=== PATIENT | female | born 1975 | race Two or more races ===

== ENCOUNTER 2021-06-17 02:18 | Emergency (ER) | payer OTHER ==
[~2021-06-17] VITALS: Ht 149.9 cm; Wt 74.8 kg
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
--- NOTE | 2021-06-17 03:13 | NUR ---
COVID SWAB COLLECTED AND SENT
[2021-06-17 05:30] VITALS: BP 139/72
== END 2021-06-17 03:30 | disposition home or self-care (01) ==
LOC: ER 02:23
DX: Z20.822 Contact with and (suspected) exposure to COVID-19 (principal); R05.9 Cough, unspecified; S01.01XD Laceration without foreign body of scalp, subsequent encounter; X58.XXXD Exposure to other specified factors, subsequent encounter; S60.011A Contusion of right thumb without damage to nail, initial encounter; Y04.1XXA Assault by human bite, initial encounter; Y92.89 Other specified places as the place of occurrence of the external cause
CPT/HCPCS: 73140; 87426; 99284; C9803